=== PATIENT | male | born 1960 | race Two or more races ===

== ENCOUNTER 2020-03-12 15:52 | Inpatient (IN) | payer OTHER ==
[~2020-03-12] VITALS: Ht 175.3 cm; Wt 94.3 kg
[2020-03-12 16:30] VITALS: BP 138/96
[2020-03-12] MEDS ORDERED: DEXTROSE 50%-WATER 25 GM/50 ML SYRINGE IVP PRN (17:45)
[2020-03-12] MEDS ORDERED: MELATONIN 5 MG TABLET PO PRN (18:15)
[2020-03-12 18:20] LABS: GLUCOMETER DEV NAME(LOC) 2WR.2B; GLUCOSE,POINT OF CARE 95 MG/DL (70-110)
[2020-03-12 21:06] LABS: GLUCOMETER DEV NAME(LOC) 2WR.2B; GLUCOSE,POINT OF CARE 156 MG/DL (70-110)
[2020-03-12] MEDS ORDERED: SODIUM CHLORIDE 0.9% 1,000 ML ONE (21:41)
[2020-03-12] MEDS: CHLORHEXIDINE GLUCONATE 0.12% 15 ML UDCUP ORAL RINSE PO SCH (21:44)
[2020-03-12] MEDS: SIMVASTATIN 20 MG TABLET PO SCH (21:45)
[2020-03-12] MEDS: DOCUSATE SODIUM 250 MG CAPSULE PO SCH (21:45)
[2020-03-12] MEDS: SENNA 187 MG TABLET PO SCH (21:45)
[2020-03-12] MEDS: GABAPENTIN 300 MG CAPSULE PO SCH (21:45)
[2020-03-12] MEDS: BACITRACIN 28 GM OINTMENT TP SCH (21:45)
[2020-03-12] MEDS: ERYTHROMYCIN 0.5% 3.5 GM TUBE OPHTHALMIC OINTMENT OS SCH (21:45)
[2020-03-12] MEDS: PIPERACILLIN/TAZO 3.375 GM/D5W 50 ML IV SCH (21:46)
[2020-03-12] MEDS: ENOXAPARIN SODIUM 60 MG/0.6 ML PF SYRINGE SQ SCH (21:46)
[2020-03-12] MEDS: INSULIN GLARGINE,HUM.REC.ANLOG 100 UNITS/ML SQ SCH (22:00)
[2020-03-12] MEDS: INSULIN LISPRO 100 UNITS/ML SQ PRN (22:00)
[2020-03-12] MEDS: 0.9% SODIUM CHLORIDE 10 ML SYRINGE IVP SCH (23:21)
[2020-03-12 23:33] VITALS: BP 127/87
[2020-03-12] MEDS: OxyCODONE HCL 5 MG IR TABLET PO PRN (23:34)
[2020-03-13] MEDS: PIPERACILLIN/TAZO 3.375 GM/D5W 50 ML IV SCH ×3 (04:57→21:47)
[2020-03-13 05:48] LABS: GLUCOMETER DEV NAME(LOC) 2WR.2B; GLUCOSE,POINT OF CARE 144 MG/DL (70-110)
[2020-03-13 06:13] LABS: BASOPHILS % (AUTO) 0.5 % (0.0-2.0); EOSINOPHILS % (AUTO) 1.9 % (1.0-6.0); HEMATOCRIT 34.6 % (41-53); HEMOGLOBIN 11.8 g/dL (13.5-17.5); LYMPHOCYTES # (AUTO) 1.5 K/uL (1.0-4.8); LYMPHOCYTES % (AUTO) 13.7 % (22.0-44.0); MEAN CORPUSCULAR HEMOGLOBIN 31.3 pg (26.0-34.0); MEAN CORPUSCULAR HGB CONC 34.3 G/dL (31.0-37.0); MEAN CORPUSCULAR VOLUME 92 fL (80-100); MONOCYTES # (AUTO) 0.8 K/uL (0.1-1.0); NEUTROPHILS # (AUTO) 8.4 K/uL (1.8-7.7); NEUTROPHILS % (AUTO) 76.9 % (40.0-70.0); PLATELET COUNT (AUTO) 316 K/uL (150-450); RED BLOOD CELL COUNT(AUTO) 3.78 MIL/uL (4.50-5.90); RED CELL DISTRIBUTION WIDTH 14.2 % (11.5-14.5)
[2020-03-13 07:04] LABS: ALANINE AMINOTRANSFERASE 37 U/L (12-78); ALBUMIN 2.4 g/dL (3.4-5.0); ALKALINE PHOSPHATASE 185 U/L (46-116); ANION GAP 6 mmol/L (8-16); ASPARTATE AMINOTRANSFERASE 16 U/L (15-37); BILIRUBIN,TOTAL 0.3 mg/dL (0.1-1.0); CALCIUM, TOTAL 9.2 mg/dL (8.8-10.5); CARBON DIOXIDE 30 mmol/L (22-29); CHLORIDE 103 mmol/L (98-107); CREATININE 0.61 mg/dL (0.60-1.30); GLOMERULAR FILTR. RATE CALC > 60 mL/min (>60); GLUCOSE,RANDOM 126 mg/dL (70-110); POTASSIUM 4.2 mmol/L (3.5-5.1); SODIUM SERUM 139 mmol/L (136-145); TOTAL PROTEIN, SERUM 7.3 g/dL (6.4-8.2); UREA NITROGEN, BLOOD 14 mg/dL (7-18)
[2020-03-13] MEDS: CHLORHEXIDINE GLUCONATE 0.12% 15 ML UDCUP ORAL RINSE PO SCH ×3 (08:19→21:00)
[2020-03-13] MEDS: OxyCODONE HCL 5 MG IR TABLET PO PRN ×3 (08:20→23:01)
[2020-03-13] MEDS: MetFORMIN HCL 500 MG TABLET PO SCH ×2 (08:20→17:29)
[2020-03-13] MEDS: NICOTINE 7 MG/24 HOUR PATCH TD SCH (08:20)
[2020-03-13] MEDS: GABAPENTIN 300 MG CAPSULE PO SCH ×3 (08:21→20:14)
[2020-03-13] MEDS: BACITRACIN 28 GM OINTMENT TP SCH ×2 (08:21→20:13)
[2020-03-13] MEDS: AmLODIPine BESYLATE 10 MG TABLET PO SCH (08:22)
[2020-03-13] MEDS: DOCUSATE SODIUM 250 MG CAPSULE PO SCH ×2 (08:22→20:14)
[2020-03-13] MEDS: ERYTHROMYCIN 0.5% 3.5 GM TUBE OPHTHALMIC OINTMENT OS SCH ×5 (08:22→21:00)
[2020-03-13] MEDS: ENOXAPARIN SODIUM 60 MG/0.6 ML PF SYRINGE SQ SCH ×2 (08:22→20:14)
[2020-03-13] MEDS: 0.9% SODIUM CHLORIDE 10 ML SYRINGE IVP SCH ×3 (08:23→23:33)
[2020-03-13 08:26] VITALS: BP 107/79
[2020-03-13] MEDS: INSULIN LISPRO 100 UNITS/ML SQ PRN ×2 (09:38→20:13)
[2020-03-13 15:33] LABS: GLUCOMETER DEV NAME(LOC) 2WR.1C; GLUCOSE,POINT OF CARE 124 MG/DL (70-110)
[2020-03-13 16:00] VITALS: BP 128/85
[2020-03-13 17:46] LABS: GLUCOMETER DEV NAME(LOC) 2WR.1C; GLUCOSE,POINT OF CARE 118 MG/DL (70-110)
[2020-03-13 17:46] LABS: GLUCOMETER DEV NAME(LOC) 2WR.1C; GLUCOSE,POINT OF CARE 134 MG/DL (70-110)
[2020-03-13] MEDS: CHLORHEXIDINE GLUCONATE 4% 118 ML TOPICAL LIQUID TP SCH ×2 (18:00→21:47)
[2020-03-13] MEDS: INSULIN GLARGINE,HUM.REC.ANLOG 100 UNITS/ML SQ SCH (20:13)
[2020-03-13] MEDS: SENNA 187 MG TABLET PO SCH (20:14)
[2020-03-13] MEDS: SIMVASTATIN 20 MG TABLET PO SCH (20:14)
[2020-03-13] MEDS ORDERED: TraZODone HCL 50 MG TABLET PO SCH (21:00)
[2020-03-13 21:12] LABS: GLUCOMETER DEV NAME(LOC) 2WR.1C; GLUCOSE,POINT OF CARE 203 MG/DL (70-110)
[2020-03-14 00:01] VITALS: BP 121/81
[2020-03-14] MEDS: OxyCODONE HCL 5 MG IR TABLET PO PRN ×4 (03:31→23:56)
[2020-03-14] MEDS: PIPERACILLIN/TAZO 3.375 GM/D5W 50 ML IV SCH (05:38)
[2020-03-14 06:00] LABS: GLUCOMETER DEV NAME(LOC) 2WR.2B; GLUCOSE,POINT OF CARE 123 MG/DL (70-110)
[2020-03-14 08:00] VITALS: BP 127/76
[2020-03-14] MEDS: MetFORMIN HCL 500 MG TABLET PO SCH ×2 (08:03→15:59)
[2020-03-14] MEDS: MULTIVITAMINS WITH MINERALS, THERAPEUTIC TABLET PO SCH (08:04)
[2020-03-14] MEDS: DOCUSATE SODIUM 250 MG CAPSULE PO SCH ×2 (08:04→20:06)
[2020-03-14] MEDS: NICOTINE 7 MG/24 HOUR PATCH TD SCH (08:04)
[2020-03-14] MEDS: BACITRACIN 28 GM OINTMENT TP SCH ×2 (08:04→20:07)
[2020-03-14] MEDS: CHLORHEXIDINE GLUCONATE 0.12% 15 ML UDCUP ORAL RINSE PO SCH ×2 (08:05→20:06)
[2020-03-14] MEDS: AmLODIPine BESYLATE 10 MG TABLET PO SCH (08:05)
[2020-03-14] MEDS: GABAPENTIN 300 MG CAPSULE PO SCH ×3 (08:05→20:06)
[2020-03-14] MEDS: ENOXAPARIN SODIUM 60 MG/0.6 ML PF SYRINGE SQ SCH ×2 (08:06→20:06)
[2020-03-14] MEDS: 0.9% SODIUM CHLORIDE 10 ML SYRINGE IVP SCH ×3 (08:09→23:31)
[2020-03-14] MEDS: ERYTHROMYCIN 0.5% 3.5 GM TUBE OPHTHALMIC OINTMENT OS SCH ×4 (08:09→21:00)
[2020-03-14 09:26] VITALS: BP 127/76
[2020-03-14 13:11] LABS: GLUCOMETER DEV NAME(LOC) 2WR.2B; GLUCOSE,POINT OF CARE 115 MG/DL (70-110)
[2020-03-14 16:13] VITALS: BP 117/73
[2020-03-14 17:11] LABS: APPEARANCE,URINE CLEAR (CLEAR); BILIRUBIN,URINE NEGATIVE (NEGATIVE); GLUCOSE, URINE (UA) NEGATIVE (NEGATIVE); KETONES,URINE NEGATIVE (NEGATIVE); LEUKOCYTE ESTERASE ,URINE NEGATIVE (NEGATIVE); NITRATE,URINE NEGATIVE (NEGATIVE); OCCULT BLOOD,URINE NEGATIVE (NEGATIVE); PH,URINE 7.5 (5.0-8.0); PROTEIN,URINE TRACE (NEGATIVE)
[2020-03-14 17:51] LABS: BACTERIA,URINE None Seen /HPF (None Seen); RBC,URINE None Seen /HPF (0-2); WBC,URINE None Seen /HPF (0-5)
[2020-03-14] MEDS: CHLORHEXIDINE GLUCONATE 4% 118 ML TOPICAL LIQUID TP SCH (18:06)
[2020-03-14] MEDS: SENNA 187 MG TABLET PO SCH (20:06)
[2020-03-14] MEDS: TraZODone HCL 100 MG TABLET PO SCH (20:06)
[2020-03-14] MEDS: INSULIN GLARGINE,HUM.REC.ANLOG 100 UNITS/ML SQ SCH (20:17)
[2020-03-14] MEDS: INSULIN LISPRO 100 UNITS/ML SQ PRN (20:17)
[2020-03-14 20:20] LABS: GLUCOMETER DEV NAME(LOC) 2WR.2B; GLUCOSE,POINT OF CARE 111 MG/DL (70-110)
[2020-03-14] MEDS: SIMVASTATIN 20 MG TABLET PO SCH (20:28)
[2020-03-14 21:52] LABS: GLUCOMETER DEV NAME(LOC) 2WR.2B; GLUCOSE,POINT OF CARE 146 MG/DL (70-110)
[2020-03-14 23:56] VITALS: BP 125/69
[2020-03-15 07:45] VITALS: BP 132/72
[2020-03-15] MEDS: ENOXAPARIN SODIUM 60 MG/0.6 ML PF SYRINGE SQ SCH ×2 (08:17→19:55)
[2020-03-15] MEDS: NICOTINE 7 MG/24 HOUR PATCH TD SCH (08:17)
[2020-03-15] MEDS: BACITRACIN 28 GM OINTMENT TP SCH ×2 (08:17→19:55)
[2020-03-15] MEDS: AmLODIPine BESYLATE 10 MG TABLET PO SCH (08:17)
[2020-03-15] MEDS: MetFORMIN HCL 500 MG TABLET PO SCH ×2 (08:17→17:32)
[2020-03-15] MEDS: 0.9% SODIUM CHLORIDE 10 ML SYRINGE IVP SCH ×3 (08:18→22:53)
[2020-03-15] MEDS: MULTIVITAMINS WITH MINERALS, THERAPEUTIC TABLET PO SCH (08:18)
[2020-03-15] MEDS: CHLORHEXIDINE GLUCONATE 0.12% 15 ML UDCUP ORAL RINSE PO SCH ×2 (08:18→19:56)
[2020-03-15] MEDS: DOCUSATE SODIUM 250 MG CAPSULE PO SCH ×2 (08:18→19:56)
[2020-03-15] MEDS: GABAPENTIN 300 MG CAPSULE PO SCH ×3 (08:18→19:56)
[2020-03-15] MEDS: ERYTHROMYCIN 0.5% 3.5 GM TUBE OPHTHALMIC OINTMENT OS SCH ×4 (08:20→19:56)
[2020-03-15] MEDS: INSULIN LISPRO 100 UNITS/ML SQ PRN ×2 (08:20→20:09)
[2020-03-15] MEDS: OxyCODONE HCL 5 MG IR TABLET PO PRN ×3 (12:13→23:00)
[2020-03-15 12:42] LABS: GLUCOMETER DEV NAME(LOC) 2WR.2B; GLUCOSE,POINT OF CARE 134 MG/DL (70-110)
[2020-03-15 15:59] LABS: GLUCOMETER DEV NAME(LOC) 2WR.1C; GLUCOSE,POINT OF CARE 154 MG/DL (70-110)
[2020-03-15 16:01] VITALS: BP 138/85
[2020-03-15 16:31] LABS: GLUCOMETER DEV NAME(LOC) 2WR.2B; GLUCOSE,POINT OF CARE 102 MG/DL (70-110)
[2020-03-15] MEDS: CHLORHEXIDINE GLUCONATE 4% 118 ML TOPICAL LIQUID TP SCH (17:32)
[2020-03-15] MEDS: TraZODone HCL 100 MG TABLET PO SCH (19:56)
[2020-03-15] MEDS: SIMVASTATIN 20 MG TABLET PO SCH (19:56)
[2020-03-15] MEDS: TAMSULOSIN HCL 0.4 MG CAPSULE PO SCH (19:56)
[2020-03-15] MEDS: SENNA 187 MG TABLET PO SCH (19:56)
[2020-03-15] MEDS: INSULIN GLARGINE,HUM.REC.ANLOG 100 UNITS/ML SQ SCH (20:05)
[2020-03-15 22:07] LABS: GLUCOMETER DEV NAME(LOC) 2WR.1C; GLUCOSE,POINT OF CARE 146 MG/DL (70-110)
[2020-03-15 23:00] VITALS: BP 116/82
[2020-03-16 05:55] LABS: GLUCOMETER DEV NAME(LOC) 2WR.1C; GLUCOSE,POINT OF CARE 131 MG/DL (70-110)
[2020-03-16] MEDS: ENOXAPARIN SODIUM 60 MG/0.6 ML PF SYRINGE SQ SCH ×2 (08:24→20:13)
[2020-03-16] MEDS: DOCUSATE SODIUM 250 MG CAPSULE PO SCH ×2 (08:24→20:14)
[2020-03-16] MEDS: AmLODIPine BESYLATE 10 MG TABLET PO SCH (08:24)
[2020-03-16] MEDS: NICOTINE 7 MG/24 HOUR PATCH TD SCH (08:24)
[2020-03-16] MEDS: CHLORHEXIDINE GLUCONATE 0.12% 15 ML UDCUP ORAL RINSE PO SCH ×2 (08:24→20:13)
[2020-03-16] MEDS: MULTIVITAMINS WITH MINERALS, THERAPEUTIC TABLET PO SCH (08:24)
[2020-03-16 08:25] VITALS: BP 120/70
[2020-03-16] MEDS: MetFORMIN HCL 500 MG TABLET PO SCH ×2 (08:25→17:43)
[2020-03-16] MEDS: GABAPENTIN 300 MG CAPSULE PO SCH ×3 (08:25→20:14)
[2020-03-16] MEDS: 0.9% SODIUM CHLORIDE 10 ML SYRINGE IVP SCH ×3 (08:25→23:40)
[2020-03-16] MEDS: BACITRACIN 28 GM OINTMENT TP SCH ×2 (08:25→20:13)
[2020-03-16] MEDS: OxyCODONE HCL 5 MG IR TABLET PO PRN ×3 (08:25→20:51)
[2020-03-16] MEDS: ERYTHROMYCIN 0.5% 3.5 GM TUBE OPHTHALMIC OINTMENT OS SCH ×4 (08:26→20:20)
[2020-03-16 14:52] LABS: GLUCOMETER DEV NAME(LOC) 2WR.1C; GLUCOSE,POINT OF CARE 128 MG/DL (70-110)
[2020-03-16 16:27] VITALS: BP 119/74
[2020-03-16 18:56] LABS: GLUCOMETER DEV NAME(LOC) 2WR.1C; GLUCOSE,POINT OF CARE 138 MG/DL (70-110)
[2020-03-16] MEDS: CHLORHEXIDINE GLUCONATE 4% 118 ML TOPICAL LIQUID TP SCH (20:13)
[2020-03-16] MEDS: SIMVASTATIN 20 MG TABLET PO SCH (20:14)
[2020-03-16] MEDS: TraZODone HCL 100 MG TABLET PO SCH (20:14)
[2020-03-16] MEDS: TAMSULOSIN HCL 0.4 MG CAPSULE PO SCH (20:14)
[2020-03-16] MEDS: SENNA 187 MG TABLET PO SCH (20:15)
[2020-03-16] MEDS: INSULIN GLARGINE,HUM.REC.ANLOG 100 UNITS/ML SQ SCH (20:19)
[2020-03-16 21:44] LABS: GLUCOMETER DEV NAME(LOC) 2WR.1C; GLUCOSE,POINT OF CARE 126 MG/DL (70-110)
[2020-03-16 23:44] VITALS: BP 121/77
[2020-03-17] MEDS: OxyCODONE HCL 5 MG IR TABLET PO PRN ×4 (01:08→23:40)
[2020-03-17 06:02] LABS: GLUCOMETER DEV NAME(LOC) 2WR.2B; GLUCOSE,POINT OF CARE 157 MG/DL (70-110)
[2020-03-17 07:34] LABS: EOSINOPHILS % (AUTO) 3.6 % (1.0-6.0); HEMATOCRIT 36.2 % (41-53); LYMPHOCYTES # (AUTO) 1.5 K/uL (1.0-4.8); LYMPHOCYTES % (AUTO) 18.6 % (22.0-44.0); MEAN CORPUSCULAR HEMOGLOBIN 30.4 pg (26.0-34.0); MEAN CORPUSCULAR HGB CONC 33.2 G/dL (31.0-37.0); MEAN CORPUSCULAR VOLUME 92 fL (80-100); MONOCYTES # (AUTO) 0.7 K/uL (0.1-1.0); MONOCYTES % (AUTO) 8.4 % (2.0-9.0); NEUTROPHILS # (AUTO) 5.4 K/uL (1.8-7.7); NEUTROPHILS % (AUTO) 68.4 % (40.0-70.0); PLATELET COUNT (AUTO) 347 K/uL (150-450); RED BLOOD CELL COUNT(AUTO) 3.95 MIL/uL (4.50-5.90); RED CELL DISTRIBUTION WIDTH 14.7 % (11.5-14.5)
[2020-03-17 08:00] LABS: ANION GAP 10 mmol/L (8-16); CALCIUM, TOTAL 9.6 mg/dL (8.8-10.5); CARBON DIOXIDE 26 mmol/L (22-29); CHLORIDE 102 mmol/L (98-107); CREATININE 0.56 mg/dL (0.60-1.30); GLOMERULAR FILTR. RATE CALC > 60 mL/min (>60); GLUCOSE,RANDOM 162 mg/dL (70-110); POTASSIUM 3.9 mmol/L (3.5-5.1); SODIUM SERUM 138 mmol/L (136-145); UREA NITROGEN, BLOOD 14 mg/dL (7-18)
[2020-03-17] MEDS: INSULIN LISPRO 100 UNITS/ML SQ PRN (08:22)
[2020-03-17] MEDS: AmLODIPine BESYLATE 10 MG TABLET PO SCH (08:26)
[2020-03-17] MEDS: CHLORHEXIDINE GLUCONATE 0.12% 15 ML UDCUP ORAL RINSE PO SCH ×2 (08:26→20:01)
[2020-03-17] MEDS: ENOXAPARIN SODIUM 60 MG/0.6 ML PF SYRINGE SQ SCH ×2 (08:26→20:01)
[2020-03-17] MEDS: BACITRACIN 28 GM OINTMENT TP SCH ×2 (08:27→20:01)
[2020-03-17] MEDS: GABAPENTIN 300 MG CAPSULE PO SCH ×3 (08:27→20:01)
[2020-03-17] MEDS: NICOTINE 7 MG/24 HOUR PATCH TD SCH (08:27)
[2020-03-17] MEDS: MetFORMIN HCL 500 MG TABLET PO SCH ×2 (08:27→17:22)
[2020-03-17] MEDS: DOCUSATE SODIUM 250 MG CAPSULE PO SCH ×2 (08:27→20:01)
[2020-03-17] MEDS: MULTIVITAMINS WITH MINERALS, THERAPEUTIC TABLET PO SCH (08:28)
[2020-03-17] MEDS: ERYTHROMYCIN 0.5% 3.5 GM TUBE OPHTHALMIC OINTMENT OS SCH ×3 (08:28→20:01)
[2020-03-17] MEDS: 0.9% SODIUM CHLORIDE 10 ML SYRINGE IVP SCH ×3 (08:28→23:40)
[2020-03-17 11:22] VITALS: BP 123/72
[2020-03-17 12:48] LABS: GLUCOMETER DEV NAME(LOC) 2WR.2B; GLUCOSE,POINT OF CARE 103 MG/DL (70-110)
[2020-03-17 16:05] VITALS: BP 144/84
[2020-03-17] MEDS: CHLORHEXIDINE GLUCONATE 4% 118 ML TOPICAL LIQUID TP SCH (18:05)
[2020-03-17] MEDS: TraZODone HCL 100 MG TABLET PO SCH (20:01)
[2020-03-17] MEDS: TAMSULOSIN HCL 0.4 MG CAPSULE PO SCH (20:01)
[2020-03-17] MEDS: SENNA 187 MG TABLET PO SCH (20:01)
[2020-03-17] MEDS: SIMVASTATIN 20 MG TABLET PO SCH (20:01)
[2020-03-17] MEDS: INSULIN GLARGINE,HUM.REC.ANLOG 100 UNITS/ML SQ SCH (20:09)
[2020-03-17 20:55] LABS: GLUCOMETER DEV NAME(LOC) 2WR.2B; GLUCOSE,POINT OF CARE 122 MG/DL (70-110)
[2020-03-17 20:55] LABS: GLUCOMETER DEV NAME(LOC) 2WR.2B; GLUCOSE,POINT OF CARE 111 MG/DL (70-110)
[2020-03-17 23:40] VITALS: BP 109/81
[2020-03-18 06:19] LABS: GLUCOMETER DEV NAME(LOC) 2WR.1C; GLUCOSE,POINT OF CARE 174 MG/DL (70-110)
[2020-03-18] MEDS: CHLORHEXIDINE GLUCONATE 0.12% 15 ML UDCUP ORAL RINSE PO SCH ×2 (08:17→20:15)
[2020-03-18] MEDS: DOCUSATE SODIUM 250 MG CAPSULE PO SCH ×2 (08:17→20:17)
[2020-03-18] MEDS: MULTIVITAMINS WITH MINERALS, THERAPEUTIC TABLET PO SCH (08:17)
[2020-03-18] MEDS: AmLODIPine BESYLATE 10 MG TABLET PO SCH (08:17)
[2020-03-18] MEDS: MetFORMIN HCL 500 MG TABLET PO SCH ×2 (08:17→17:39)
[2020-03-18] MEDS: GABAPENTIN 300 MG CAPSULE PO SCH ×3 (08:17→20:16)
[2020-03-18] MEDS: BACITRACIN 28 GM OINTMENT TP SCH ×2 (08:18→20:16)
[2020-03-18] MEDS: ENOXAPARIN SODIUM 60 MG/0.6 ML PF SYRINGE SQ SCH ×2 (08:18→20:15)
[2020-03-18] MEDS: NICOTINE 7 MG/24 HOUR PATCH TD SCH (08:18)
[2020-03-18] MEDS: INSULIN LISPRO 100 UNITS/ML SQ PRN (08:18)
[2020-03-18] MEDS: 0.9% SODIUM CHLORIDE 10 ML SYRINGE IVP SCH ×2 (08:21→15:48)
[2020-03-18] MEDS: ERYTHROMYCIN 0.5% 3.5 GM TUBE OPHTHALMIC OINTMENT OS SCH ×4 (08:26→20:22)
[2020-03-18 09:21] VITALS: BP 121/73
[2020-03-18 13:38] LABS: GLUCOMETER DEV NAME(LOC) 2WR.2B; GLUCOSE,POINT OF CARE 104 MG/DL (70-110)
[2020-03-18 15:47] VITALS: BP 136/82
[2020-03-18] MEDS: OxyCODONE HCL 5 MG IR TABLET PO PRN ×2 (15:47→21:27)
[2020-03-18 18:08] LABS: GLUCOMETER DEV NAME(LOC) 2WR.2B; GLUCOSE,POINT OF CARE 106 MG/DL (70-110)
[2020-03-18] MEDS: CHLORHEXIDINE GLUCONATE 4% 118 ML TOPICAL LIQUID TP SCH (20:15)
[2020-03-18] MEDS: TraZODone HCL 100 MG TABLET PO SCH (20:16)
[2020-03-18] MEDS: TAMSULOSIN HCL 0.4 MG CAPSULE PO SCH (20:16)
[2020-03-18] MEDS: SIMVASTATIN 20 MG TABLET PO SCH (20:17)
[2020-03-18] MEDS: SENNA 187 MG TABLET PO SCH (20:17)
[2020-03-18] MEDS: INSULIN GLARGINE,HUM.REC.ANLOG 100 UNITS/ML SQ SCH (20:22)
[2020-03-18 22:52] LABS: GLUCOMETER DEV NAME(LOC) 2WR.2B; GLUCOSE,POINT OF CARE 112 MG/DL (70-110)
[2020-03-19] VITALS: BP 110/78
[2020-03-19] MEDS: 0.9% SODIUM CHLORIDE 10 ML SYRINGE IVP SCH ×4 (00:05→23:52)
[2020-03-19 05:59] LABS: GLUCOMETER DEV NAME(LOC) 2WR.2B; GLUCOSE,POINT OF CARE 135 MG/DL (70-110)
[2020-03-19 08:17] VITALS: BP 112/74
[2020-03-19] MEDS: ERYTHROMYCIN 0.5% 3.5 GM TUBE OPHTHALMIC OINTMENT OS SCH ×4 (09:00→20:19)
[2020-03-19] MEDS: NICOTINE 7 MG/24 HOUR PATCH TD SCH (10:46)
[2020-03-19] MEDS: AmLODIPine BESYLATE 10 MG TABLET PO SCH (10:46)
[2020-03-19] MEDS: DOCUSATE SODIUM 250 MG CAPSULE PO SCH ×2 (10:46→20:18)
[2020-03-19] MEDS: CHLORHEXIDINE GLUCONATE 0.12% 15 ML UDCUP ORAL RINSE PO SCH ×2 (10:46→20:19)
[2020-03-19] MEDS: MetFORMIN HCL 500 MG TABLET PO SCH ×2 (10:46→16:51)
[2020-03-19] MEDS: GABAPENTIN 300 MG CAPSULE PO SCH ×3 (10:46→20:19)
[2020-03-19] MEDS: MULTIVITAMINS WITH MINERALS, THERAPEUTIC TABLET PO SCH (10:46)
[2020-03-19] MEDS: ENOXAPARIN SODIUM 60 MG/0.6 ML PF SYRINGE SQ SCH ×2 (10:47→20:18)
[2020-03-19] MEDS: BACITRACIN 28 GM OINTMENT TP SCH ×2 (10:47→20:19)
[2020-03-19] MEDS: OxyCODONE HCL 5 MG IR TABLET PO PRN ×2 (10:49→18:21)
[2020-03-19] MEDS: INSULIN LISPRO 100 UNITS/ML SQ PRN (13:03)
[2020-03-19 14:00] LABS: GLUCOMETER DEV NAME(LOC) 2WR.1C; GLUCOSE,POINT OF CARE 242 MG/DL (70-110)
[2020-03-19 17:09] VITALS: BP 143/91
[2020-03-19] MEDS: CHLORHEXIDINE GLUCONATE 4% 118 ML TOPICAL LIQUID TP SCH (18:21)
[2020-03-19 18:34] LABS: GLUCOMETER DEV NAME(LOC) 2WR.2B; GLUCOSE,POINT OF CARE 86 MG/DL (70-110)
[2020-03-19] MEDS: SENNA 187 MG TABLET PO SCH (20:18)
[2020-03-19] MEDS: TraZODone HCL 100 MG TABLET PO SCH (20:18)
[2020-03-19] MEDS: SIMVASTATIN 20 MG TABLET PO SCH (20:18)
[2020-03-19] MEDS: TAMSULOSIN HCL 0.4 MG CAPSULE PO SCH (20:18)
[2020-03-19] MEDS: INSULIN GLARGINE,HUM.REC.ANLOG 100 UNITS/ML SQ SCH (20:23)
[2020-03-19 20:38] VITALS: BP 138/89
[2020-03-19 21:09] LABS: GLUCOMETER DEV NAME(LOC) 2WR.2B; GLUCOSE,POINT OF CARE 131 MG/DL (70-110)
[2020-03-20 01:42] VITALS: BP 121/77
[2020-03-20] MEDS: OxyCODONE HCL 5 MG IR TABLET PO PRN ×4 (01:42→20:57)
[2020-03-20 06:07] LABS: GLUCOMETER DEV NAME(LOC) 2WR.2B; GLUCOSE,POINT OF CARE 85 MG/DL (70-110)
[2020-03-20 08:05] VITALS: BP 148/68
[2020-03-20] MEDS: AmLODIPine BESYLATE 10 MG TABLET PO SCH (08:23)
[2020-03-20] MEDS: MetFORMIN HCL 500 MG TABLET PO SCH ×2 (08:23→16:48)
[2020-03-20] MEDS: 0.9% SODIUM CHLORIDE 10 ML SYRINGE IVP SCH ×2 (08:24→16:18)
[2020-03-20] MEDS: DOCUSATE SODIUM 250 MG CAPSULE PO SCH ×2 (08:24→20:56)
[2020-03-20] MEDS: CHLORHEXIDINE GLUCONATE 0.12% 15 ML UDCUP ORAL RINSE PO SCH ×2 (08:24→20:57)
[2020-03-20] MEDS: GABAPENTIN 300 MG CAPSULE PO SCH ×3 (08:24→20:56)
[2020-03-20] MEDS: MULTIVITAMINS WITH MINERALS, THERAPEUTIC TABLET PO SCH (08:24)
[2020-03-20] MEDS: ENOXAPARIN SODIUM 60 MG/0.6 ML PF SYRINGE SQ SCH ×2 (08:24→20:56)
[2020-03-20] MEDS: BACITRACIN 28 GM OINTMENT TP SCH ×2 (08:24→20:56)
[2020-03-20] MEDS: NICOTINE 7 MG/24 HOUR PATCH TD SCH (08:25)
[2020-03-20] MEDS: ERYTHROMYCIN 0.5% 3.5 GM TUBE OPHTHALMIC OINTMENT OS SCH ×4 (08:34→21:00)
[2020-03-20 14:19] LABS: GLUCOMETER DEV NAME(LOC) 2WR.1C; GLUCOSE,POINT OF CARE 126 MG/DL (70-110)
[2020-03-20 16:00] VITALS: BP 135/83
[2020-03-20] MEDS: CHLORHEXIDINE GLUCONATE 4% 118 ML TOPICAL LIQUID TP SCH (18:00)
[2020-03-20] MEDS: TraZODone HCL 100 MG TABLET PO SCH (20:56)
[2020-03-20] MEDS: TAMSULOSIN HCL 0.4 MG CAPSULE PO SCH (20:56)
[2020-03-20] MEDS: SIMVASTATIN 20 MG TABLET PO SCH (20:56)
[2020-03-20] MEDS: SENNA 187 MG TABLET PO SCH (20:56)
[2020-03-20] MEDS: INSULIN GLARGINE,HUM.REC.ANLOG 100 UNITS/ML SQ SCH (20:59)
[2020-03-21] MEDS: 0.9% SODIUM CHLORIDE 10 ML SYRINGE IVP SCH ×4 (00:10→23:56)
[2020-03-21 00:12] VITALS: BP 122/82
[2020-03-21 05:28] LABS: GLUCOMETER DEV NAME(LOC) 2WR.1C; GLUCOSE,POINT OF CARE 132 MG/DL (70-110)
[2020-03-21 05:30] LABS: GLUCOMETER DEV NAME(LOC) 2WR.1C; GLUCOSE,POINT OF CARE 139 MG/DL (70-110)
[2020-03-21 06:00] LABS: GLUCOMETER DEV NAME(LOC) 2WR.1C; GLUCOSE,POINT OF CARE 104 MG/DL (70-110)
[2020-03-21 09:40] VITALS: BP 117/77
[2020-03-21] MEDS: MetFORMIN HCL 500 MG TABLET PO SCH ×2 (09:43→17:26)
[2020-03-21] MEDS: AmLODIPine BESYLATE 10 MG TABLET PO SCH (09:43)
[2020-03-21] MEDS: NICOTINE 7 MG/24 HOUR PATCH TD SCH (09:43)
[2020-03-21] MEDS: CHLORHEXIDINE GLUCONATE 0.12% 15 ML UDCUP ORAL RINSE PO SCH ×2 (09:43→20:14)
[2020-03-21] MEDS: BACITRACIN 28 GM OINTMENT TP SCH ×2 (09:43→20:13)
[2020-03-21] MEDS: ERYTHROMYCIN 0.5% 3.5 GM TUBE OPHTHALMIC OINTMENT OS SCH ×3 (09:43→20:12)
[2020-03-21] MEDS: GABAPENTIN 300 MG CAPSULE PO SCH ×3 (09:44→20:12)
[2020-03-21] MEDS: ENOXAPARIN SODIUM 60 MG/0.6 ML PF SYRINGE SQ SCH ×2 (09:44→20:13)
[2020-03-21] MEDS: DOCUSATE SODIUM 250 MG CAPSULE PO SCH ×2 (09:44→20:12)
[2020-03-21] MEDS: MULTIVITAMINS WITH MINERALS, THERAPEUTIC TABLET PO SCH (09:45)
[2020-03-21] MEDS: OxyCODONE HCL 5 MG IR TABLET PO PRN ×3 (09:52→23:56)
[2020-03-21 15:39] LABS: GLUCOMETER DEV NAME(LOC) 2WR.2B; GLUCOSE,POINT OF CARE 122 MG/DL (70-110)
[2020-03-21 15:52] VITALS: BP 131/77
[2020-03-21] MEDS: SENNA 187 MG TABLET PO SCH (20:12)
[2020-03-21] MEDS: CHLORHEXIDINE GLUCONATE 4% 118 ML TOPICAL LIQUID TP SCH (20:12)
[2020-03-21] MEDS: TAMSULOSIN HCL 0.4 MG CAPSULE PO SCH (20:13)
[2020-03-21] MEDS: SIMVASTATIN 20 MG TABLET PO SCH (20:14)
[2020-03-21 20:19] LABS: GLUCOMETER DEV NAME(LOC) 2WR.2B; GLUCOSE,POINT OF CARE 108 MG/DL (70-110)
[2020-03-21] MEDS: TraZODone HCL 100 MG TABLET PO SCH (20:39)
[2020-03-21] MEDS: INSULIN GLARGINE,HUM.REC.ANLOG 100 UNITS/ML SQ SCH (21:36)
[2020-03-21 23:39] LABS: GLUCOMETER DEV NAME(LOC) 2WR.2B; GLUCOSE,POINT OF CARE 105 MG/DL (70-110)
[2020-03-21 23:56] VITALS: BP 109/70
[2020-03-22 00:05] VITALS: BP 109/70
[2020-03-22] MEDS: OxyCODONE HCL 5 MG IR TABLET PO PRN (05:45)
[2020-03-22 05:55] LABS: GLUCOMETER DEV NAME(LOC) 2WR.2B; GLUCOSE,POINT OF CARE 132 MG/DL (70-110)
[2020-03-22] MEDS: MetFORMIN HCL 500 MG TABLET PO SCH ×2 (08:42→17:07)
[2020-03-22] MEDS: DOCUSATE SODIUM 250 MG CAPSULE PO SCH ×2 (08:43→20:27)
[2020-03-22] MEDS: BACITRACIN 28 GM OINTMENT TP SCH (08:43)
[2020-03-22] MEDS: ENOXAPARIN SODIUM 60 MG/0.6 ML PF SYRINGE SQ SCH ×2 (08:43→20:27)
[2020-03-22] MEDS: CHLORHEXIDINE GLUCONATE 0.12% 15 ML UDCUP ORAL RINSE PO SCH ×2 (08:43→20:27)
[2020-03-22] MEDS: AmLODIPine BESYLATE 10 MG TABLET PO SCH (08:43)
[2020-03-22] MEDS: GABAPENTIN 300 MG CAPSULE PO SCH ×3 (08:43→20:27)
[2020-03-22] MEDS: NICOTINE 7 MG/24 HOUR PATCH TD SCH (08:43)
[2020-03-22] MEDS: MULTIVITAMINS WITH MINERALS, THERAPEUTIC TABLET PO SCH (08:43)
[2020-03-22] MEDS: 0.9% SODIUM CHLORIDE 10 ML SYRINGE IVP SCH ×2 (08:44→16:11)
[2020-03-22] MEDS: ERYTHROMYCIN 0.5% 3.5 GM TUBE OPHTHALMIC OINTMENT OS SCH ×3 (08:44→16:00)
[2020-03-22 08:45] VITALS: BP 134/84
[2020-03-22] MEDS: ACETAMINOPHEN 325 MG TABLET PO PRN ×2 (08:46→20:27)
[2020-03-22] MEDS: INSULIN LISPRO 100 UNITS/ML SQ PRN (13:38)
[2020-03-22 16:00] VITALS: BP 124/74
[2020-03-22] MEDS: CHLORHEXIDINE GLUCONATE 4% 118 ML TOPICAL LIQUID TP SCH (17:08)
[2020-03-22 18:02] LABS: GLUCOMETER DEV NAME(LOC) 2WR.2B; GLUCOSE,POINT OF CARE 112 MG/DL (70-110)
[2020-03-22] MEDS: SENNA 187 MG TABLET PO SCH (20:27)
[2020-03-22] MEDS: TAMSULOSIN HCL 0.4 MG CAPSULE PO SCH (20:27)
[2020-03-22] MEDS: SIMVASTATIN 20 MG TABLET PO SCH (20:27)
[2020-03-22] MEDS: INSULIN GLARGINE,HUM.REC.ANLOG 100 UNITS/ML SQ SCH (20:37)
[2020-03-22] MEDS: TraZODone HCL 100 MG TABLET PO SCH (20:48)
[2020-03-22 22:07] LABS: GLUCOMETER DEV NAME(LOC) 2WR.2B; GLUCOSE,POINT OF CARE 114 MG/DL (70-110)
[2020-03-23 00:06] VITALS: BP 129/79
[2020-03-23] MEDS: ACETAMINOPHEN 325 MG TABLET PO PRN (03:15)
[2020-03-23 05:46] LABS: GLUCOMETER DEV NAME(LOC) 2WR.1C; GLUCOSE,POINT OF CARE 159 MG/DL (70-110)
[2020-03-23 05:54] LABS: GLUCOMETER DEV NAME(LOC) 2WR.1C; GLUCOSE,POINT OF CARE 131 MG/DL (70-110)
[2020-03-23] MEDS: ENOXAPARIN SODIUM 60 MG/0.6 ML PF SYRINGE SQ SCH ×2 (07:45→20:12)
[2020-03-23] MEDS: DOCUSATE SODIUM 250 MG CAPSULE PO SCH ×2 (07:45→20:12)
[2020-03-23] MEDS: NICOTINE 7 MG/24 HOUR PATCH TD SCH (07:45)
[2020-03-23] MEDS: AmLODIPine BESYLATE 10 MG TABLET PO SCH (07:45)
[2020-03-23] MEDS: CHLORHEXIDINE GLUCONATE 0.12% 15 ML UDCUP ORAL RINSE PO SCH ×2 (07:45→20:12)
[2020-03-23] MEDS: MULTIVITAMINS WITH MINERALS, THERAPEUTIC TABLET PO SCH (07:45)
[2020-03-23] MEDS: MetFORMIN HCL 500 MG TABLET PO SCH ×2 (07:45→17:19)
[2020-03-23] MEDS: GABAPENTIN 300 MG CAPSULE PO SCH ×3 (07:45→20:13)
[2020-03-23 08:52] VITALS: BP 105/64
[2020-03-23 15:18] VITALS: BP 146/79
[2020-03-23] MEDS: CHLORHEXIDINE GLUCONATE 4% 118 ML TOPICAL LIQUID TP SCH (18:00)
[2020-03-23 18:51] LABS: GLUCOMETER DEV NAME(LOC) 2WR.2B; GLUCOSE,POINT OF CARE 96 MG/DL (70-110)
[2020-03-23] MEDS: TraZODone HCL 100 MG TABLET PO SCH (20:13)
[2020-03-23] MEDS: TAMSULOSIN HCL 0.4 MG CAPSULE PO SCH (20:13)
[2020-03-23] MEDS: SIMVASTATIN 20 MG TABLET PO SCH (20:13)
[2020-03-23] MEDS: SENNA 187 MG TABLET PO SCH (20:13)
[2020-03-23] MEDS: INSULIN GLARGINE,HUM.REC.ANLOG 100 UNITS/ML SQ SCH (20:35)
[2020-03-23 21:22] LABS: GLUCOMETER DEV NAME(LOC) 2WR.2B; GLUCOSE,POINT OF CARE 104 MG/DL (70-110)
[2020-03-24 01:00] VITALS: BP 118/76
[2020-03-24 01:57] LABS: GLUCOMETER DEV NAME(LOC) 2WR.1C; GLUCOSE,POINT OF CARE 96 MG/DL (70-110)
[2020-03-24 06:11] LABS: GLUCOMETER DEV NAME(LOC) 2WR.2B; GLUCOSE,POINT OF CARE 139 MG/DL (70-110)
[2020-03-24] MEDS: DOCUSATE SODIUM 250 MG CAPSULE PO SCH ×2 (07:58→20:48)
[2020-03-24] MEDS: AmLODIPine BESYLATE 10 MG TABLET PO SCH (07:58)
[2020-03-24] MEDS: NICOTINE 7 MG/24 HOUR PATCH TD SCH (07:58)
[2020-03-24] MEDS: MULTIVITAMINS WITH MINERALS, THERAPEUTIC TABLET PO SCH (07:58)
[2020-03-24] MEDS: GABAPENTIN 300 MG CAPSULE PO SCH ×3 (07:58→20:47)
[2020-03-24] MEDS: MetFORMIN HCL 500 MG TABLET PO SCH ×2 (07:58→17:21)
[2020-03-24] MEDS: CHLORHEXIDINE GLUCONATE 0.12% 15 ML UDCUP ORAL RINSE PO SCH ×2 (07:59→20:49)
[2020-03-24] MEDS: ENOXAPARIN SODIUM 60 MG/0.6 ML PF SYRINGE SQ SCH ×2 (07:59→20:47)
[2020-03-24 08:05] VITALS: BP 110/79
[2020-03-24 12:39] LABS: GLUCOMETER DEV NAME(LOC) 2WR.1C; GLUCOSE,POINT OF CARE 85 MG/DL (70-110)
[2020-03-24] MEDS: ACETAMINOPHEN 325 MG TABLET PO PRN (15:23)
[2020-03-24 16:09] VITALS: BP 130/87
[2020-03-24] MEDS: SENNA 187 MG TABLET PO SCH (20:47)
[2020-03-24] MEDS: TAMSULOSIN HCL 0.4 MG CAPSULE PO SCH (20:47)
[2020-03-24] MEDS: SIMVASTATIN 20 MG TABLET PO SCH (20:48)
[2020-03-24] MEDS: TraZODone HCL 100 MG TABLET PO SCH (20:48)
[2020-03-24] MEDS: INSULIN GLARGINE,HUM.REC.ANLOG 100 UNITS/ML SQ SCH (21:03)
[2020-03-25 01:00] VITALS: BP 105/69
[2020-03-25 05:08] LABS: GLUCOMETER DEV NAME(LOC) 2WR.1C; GLUCOSE,POINT OF CARE 120 MG/DL (70-110)
[2020-03-25 05:08] LABS: GLUCOMETER DEV NAME(LOC) 2WR.1C; GLUCOSE,POINT OF CARE 101 MG/DL (70-110)
[2020-03-25 07:10] VITALS: BP 121/60
[2020-03-25] MEDS: MetFORMIN HCL 500 MG TABLET PO SCH ×2 (08:20→16:21)
[2020-03-25] MEDS: DOCUSATE SODIUM 250 MG CAPSULE PO SCH ×2 (08:20→20:02)
[2020-03-25] MEDS: MULTIVITAMINS WITH MINERALS, THERAPEUTIC TABLET PO SCH (08:21)
[2020-03-25] MEDS: AmLODIPine BESYLATE 10 MG TABLET PO SCH (08:21)
[2020-03-25] MEDS: GABAPENTIN 300 MG CAPSULE PO SCH ×3 (08:21→20:02)
[2020-03-25] MEDS: ENOXAPARIN SODIUM 60 MG/0.6 ML PF SYRINGE SQ SCH ×2 (08:21→20:02)
[2020-03-25] MEDS: CHLORHEXIDINE GLUCONATE 0.12% 15 ML UDCUP ORAL RINSE PO SCH ×2 (08:21→20:02)
[2020-03-25] MEDS: NICOTINE 7 MG/24 HOUR PATCH TD SCH (08:22)
[2020-03-25] MEDS: ACETAMINOPHEN 325 MG TABLET PO PRN ×2 (08:24→20:03)
[2020-03-25 12:27] VITALS: BP 125/80
[2020-03-25] MEDS: CARVEDILOL 3.125 MG TABLET PO SCH ×2 (12:29→20:02)
[2020-03-25 12:54] LABS: GLUCOMETER DEV NAME(LOC) 2WR.2B; GLUCOSE,POINT OF CARE 95 MG/DL (70-110)
[2020-03-25 15:30] VITALS: BP 119/88
[2020-03-25 17:43] LABS: GLUCOMETER DEV NAME(LOC) 2WR.1C; GLUCOSE,POINT OF CARE 139 MG/DL (70-110)
[2020-03-25 17:47] LABS: GLUCOMETER DEV NAME(LOC) 2WR.1C; GLUCOSE,POINT OF CARE 98 MG/DL (70-110)
[2020-03-25] MEDS: TAMSULOSIN HCL 0.4 MG CAPSULE PO SCH (20:01)
[2020-03-25] MEDS: SIMVASTATIN 20 MG TABLET PO SCH (20:02)
[2020-03-25] MEDS: TraZODone HCL 100 MG TABLET PO SCH (20:02)
[2020-03-25] MEDS: SENNA 187 MG TABLET PO SCH (20:03)
[2020-03-25] MEDS: INSULIN GLARGINE,HUM.REC.ANLOG 100 UNITS/ML SQ SCH (20:12)
[2020-03-25 21:14] LABS: GLUCOMETER DEV NAME(LOC) 2WR.2B; GLUCOSE,POINT OF CARE 103 MG/DL (70-110)
[2020-03-26] VITALS: BP 109/84
[2020-03-26 07:00] VITALS: BP 123/75
[2020-03-26 08:00] VITALS: BP 123/75
[2020-03-26] MEDS: MULTIVITAMINS WITH MINERALS, THERAPEUTIC TABLET PO SCH (08:14)
[2020-03-26] MEDS: GABAPENTIN 300 MG CAPSULE PO SCH ×3 (08:14→20:35)
[2020-03-26] MEDS: MetFORMIN HCL 500 MG TABLET PO SCH ×2 (08:14→17:45)
[2020-03-26] MEDS: CARVEDILOL 3.125 MG TABLET PO SCH (08:15)
[2020-03-26] MEDS: CHLORHEXIDINE GLUCONATE 0.12% 15 ML UDCUP ORAL RINSE PO SCH (08:15)
[2020-03-26] MEDS: AmLODIPine BESYLATE 10 MG TABLET PO SCH (08:15)
[2020-03-26] MEDS: DOCUSATE SODIUM 250 MG CAPSULE PO SCH ×2 (08:15→20:35)
[2020-03-26] MEDS: NICOTINE 7 MG/24 HOUR PATCH TD SCH (08:16)
[2020-03-26] MEDS: ENOXAPARIN SODIUM 60 MG/0.6 ML PF SYRINGE SQ SCH (08:16)
[2020-03-26 16:00] VITALS: BP 125/76
[2020-03-26 20:31] VITALS: BP 139/78
[2020-03-26] MEDS: SENNA 187 MG TABLET PO SCH (20:35)
[2020-03-26] MEDS: TAMSULOSIN HCL 0.4 MG CAPSULE PO SCH (20:35)
[2020-03-26] MEDS: TraZODone HCL 100 MG TABLET PO SCH (20:35)
[2020-03-26] MEDS: SIMVASTATIN 20 MG TABLET PO SCH (20:35)
[2020-03-26] MEDS: CARVEDILOL 6.25 MG TABLET PO SCH (20:36)
[2020-03-26] MEDS: INSULIN GLARGINE,HUM.REC.ANLOG 100 UNITS/ML SQ SCH (21:05)
[2020-03-27] VITALS: BP 114/83
[2020-03-27] MEDS: ACETAMINOPHEN 325 MG TABLET PO PRN ×4 (02:03→23:42)
[2020-03-27 06:12] LABS: GLUCOMETER DEV NAME(LOC) 2WR.2B; GLUCOSE,POINT OF CARE 92 MG/DL (70-110)
[2020-03-27 06:12] LABS: GLUCOMETER DEV NAME(LOC) 2WR.2B; GLUCOSE,POINT OF CARE 86 MG/DL (70-110)
[2020-03-27 06:13] LABS: GLUCOMETER DEV NAME(LOC) 2WR.2B; GLUCOSE,POINT OF CARE 115 MG/DL (70-110)
[2020-03-27 06:14] LABS: GLUCOMETER DEV NAME(LOC) 2WR.1C; GLUCOSE,POINT OF CARE 120 MG/DL (70-110)
[2020-03-27 06:25] LABS: GLUCOMETER DEV NAME(LOC) 2WR.2B; GLUCOSE,POINT OF CARE 123 MG/DL (70-110)
[2020-03-27 07:57] VITALS: BP 117/67
[2020-03-27] MEDS: DOCUSATE SODIUM 250 MG CAPSULE PO SCH ×2 (07:57→21:00)
[2020-03-27] MEDS: CARVEDILOL 6.25 MG TABLET PO SCH ×2 (07:57→21:00)
[2020-03-27] MEDS: MULTIVITAMINS WITH MINERALS, THERAPEUTIC TABLET PO SCH (07:57)
[2020-03-27] MEDS: GABAPENTIN 300 MG CAPSULE PO SCH ×3 (07:57→21:00)
[2020-03-27] MEDS: MetFORMIN HCL 500 MG TABLET PO SCH ×2 (07:57→17:19)
[2020-03-27] MEDS: AmLODIPine BESYLATE 10 MG TABLET PO SCH (07:57)
[2020-03-27] MEDS: NICOTINE 7 MG/24 HOUR PATCH TD SCH (07:58)
[2020-03-27 17:14] LABS: GLUCOMETER DEV NAME(LOC) 2WR.2B; GLUCOSE,POINT OF CARE 93 MG/DL (70-110)
[2020-03-27 17:16] LABS: GLUCOMETER DEV NAME(LOC) 2WR.1C; GLUCOSE,POINT OF CARE 94 MG/DL (70-110)
[2020-03-27 17:19] VITALS: BP 101/68
[2020-03-27 21:00] VITALS: BP 119/75
[2020-03-27] MEDS: SIMVASTATIN 20 MG TABLET PO SCH (21:00)
[2020-03-27] MEDS: TraZODone HCL 100 MG TABLET PO SCH (21:00)
[2020-03-27] MEDS: SENNA 187 MG TABLET PO SCH (21:00)
[2020-03-27] MEDS: TAMSULOSIN HCL 0.4 MG CAPSULE PO SCH (21:00)
[2020-03-27] MEDS: INSULIN GLARGINE,HUM.REC.ANLOG 100 UNITS/ML SQ SCH (21:04)
[2020-03-27 21:38] LABS: GLUCOMETER DEV NAME(LOC) 2WR.1C; GLUCOSE,POINT OF CARE 140 MG/DL (70-110)
[2020-03-28 00:42] VITALS: BP 122/80
[2020-03-28 06:12] LABS: GLUCOMETER DEV NAME(LOC) 2WR.1C; GLUCOSE,POINT OF CARE 133 MG/DL (70-110)
[2020-03-28 08:00] VITALS: BP 148/72
[2020-03-28 08:11] LABS: BASOPHILS % (AUTO) 0.4 % (0.0-2.0); EOSINOPHILS % (AUTO) 2.7 % (1.0-6.0); HEMATOCRIT 37.6 % (41-53); HEMOGLOBIN 12.7 g/dL (13.5-17.5); LYMPHOCYTES # (AUTO) 2.6 K/uL (1.0-4.8); LYMPHOCYTES % (AUTO) 30.6 % (22.0-44.0); MEAN CORPUSCULAR HEMOGLOBIN 30.8 pg (26.0-34.0); MEAN CORPUSCULAR HGB CONC 33.7 G/dL (31.0-37.0); MEAN CORPUSCULAR VOLUME 91 fL (80-100); MONOCYTES # (AUTO) 0.9 K/uL (0.1-1.0); MONOCYTES % (AUTO) 10.1 % (2.0-9.0); NEUTROPHILS # (AUTO) 4.8 K/uL (1.8-7.7); NEUTROPHILS % (AUTO) 56.2 % (40.0-70.0); PLATELET COUNT (AUTO) 377 K/uL (150-450); RED BLOOD CELL COUNT(AUTO) 4.12 MIL/uL (4.50-5.90); RED CELL DISTRIBUTION WIDTH 15.2 % (11.5-14.5)
[2020-03-28] MEDS: DOCUSATE SODIUM 250 MG CAPSULE PO SCH ×2 (08:20→20:07)
[2020-03-28] MEDS: MULTIVITAMINS WITH MINERALS, THERAPEUTIC TABLET PO SCH (08:20)
[2020-03-28] MEDS: MetFORMIN HCL 500 MG TABLET PO SCH ×2 (08:21→16:33)
[2020-03-28] MEDS: AmLODIPine BESYLATE 10 MG TABLET PO SCH (08:21)
[2020-03-28] MEDS: GABAPENTIN 300 MG CAPSULE PO SCH ×3 (08:21→20:06)
[2020-03-28] MEDS: CARVEDILOL 6.25 MG TABLET PO SCH (08:21)
[2020-03-28] MEDS: NICOTINE 7 MG/24 HOUR PATCH TD SCH (08:25)
[2020-03-28 08:36] LABS: ALANINE AMINOTRANSFERASE 30 U/L (12-78); ALBUMIN 2.9 g/dL (3.4-5.0); ALKALINE PHOSPHATASE 166 U/L (46-116); ANION GAP 7 mmol/L (8-16); ASPARTATE AMINOTRANSFERASE 18 U/L (15-37); BILIRUBIN,TOTAL 0.2 mg/dL (0.1-1.0); CALCIUM, TOTAL 8.9 mg/dL (8.8-10.5); CARBON DIOXIDE 24 mmol/L (22-29); CHLORIDE 105 mmol/L (98-107); CREATININE 0.62 mg/dL (0.60-1.30); GLOMERULAR FILTR. RATE CALC > 60 mL/min (>60); GLUCOSE,RANDOM 206 mg/dL (70-110); POTASSIUM 4.2 mmol/L (3.5-5.1); SODIUM SERUM 136 mmol/L (136-145); TOTAL PROTEIN, SERUM 6.9 g/dL (6.4-8.2); UREA NITROGEN, BLOOD 15 mg/dL (7-18)
[2020-03-28 12:07] LABS: GLUCOMETER DEV NAME(LOC) 2WR.2B; GLUCOSE,POINT OF CARE 69 MG/DL (70-110)
[2020-03-28 15:57] VITALS: BP 122/78
[2020-03-28] MEDS: ACETAMINOPHEN 325 MG TABLET PO PRN (15:59)
[2020-03-28 18:23] LABS: GLUCOMETER DEV NAME(LOC) 2WR.2B; GLUCOSE,POINT OF CARE 100 MG/DL (70-110)
[2020-03-28 19:58] VITALS: BP 129/83
[2020-03-28] MEDS: TAMSULOSIN HCL 0.4 MG CAPSULE PO SCH (20:06)
[2020-03-28] MEDS: SIMVASTATIN 20 MG TABLET PO SCH (20:06)
[2020-03-28] MEDS: METOPROLOL TARTRATE 25 MG TABLET PO SCH (20:06)
[2020-03-28] MEDS: TraZODone HCL 100 MG TABLET PO SCH (20:06)
[2020-03-28] MEDS: SENNA 187 MG TABLET PO SCH (20:07)
[2020-03-28] MEDS: INSULIN GLARGINE,HUM.REC.ANLOG 100 UNITS/ML SQ SCH (20:08)
[2020-03-28] MEDS: INSULIN LISPRO 100 UNITS/ML SQ PRN (20:08)
[2020-03-29] VITALS: BP 118/77
[2020-03-29] MEDS: ACETAMINOPHEN 325 MG TABLET PO PRN ×2 (03:42→15:08)
[2020-03-29 05:48] LABS: GLUCOMETER DEV NAME(LOC) 2WR.2B; GLUCOSE,POINT OF CARE 113 MG/DL (70-110)
[2020-03-29 07:55] VITALS: BP 133/88
[2020-03-29] MEDS: AmLODIPine BESYLATE 10 MG TABLET PO SCH (08:15)
[2020-03-29] MEDS: DOCUSATE SODIUM 250 MG CAPSULE PO SCH ×2 (08:15→20:12)
[2020-03-29] MEDS: METOPROLOL TARTRATE 25 MG TABLET PO SCH ×2 (08:15→20:12)
[2020-03-29] MEDS: MetFORMIN HCL 500 MG TABLET PO SCH ×2 (08:15→17:12)
[2020-03-29] MEDS: GABAPENTIN 300 MG CAPSULE PO SCH ×3 (08:15→20:12)
[2020-03-29] MEDS: NICOTINE 7 MG/24 HOUR PATCH TD SCH (08:16)
[2020-03-29] MEDS: MULTIVITAMINS WITH MINERALS, THERAPEUTIC TABLET PO SCH (08:16)
[2020-03-29 11:51] LABS: GLUCOMETER DEV NAME(LOC) 2WR.1C; GLUCOSE,POINT OF CARE 185 MG/DL (70-110)
[2020-03-29] MEDS: INSULIN LISPRO 100 UNITS/ML SQ PRN (12:19)
[2020-03-29 12:46] LABS: GLUCOMETER DEV NAME(LOC) 2WR.2B; GLUCOSE,POINT OF CARE 113 MG/DL (70-110)
[2020-03-29 16:05] VITALS: BP 121/70
[2020-03-29 17:32] LABS: GLUCOMETER DEV NAME(LOC) 2WR.2B; GLUCOSE,POINT OF CARE 96 MG/DL (70-110)
[2020-03-29] MEDS: SIMVASTATIN 20 MG TABLET PO SCH (20:11)
[2020-03-29] MEDS: TAMSULOSIN HCL 0.4 MG CAPSULE PO SCH (20:12)
[2020-03-29] MEDS: TraZODone HCL 100 MG TABLET PO SCH (20:12)
[2020-03-29] MEDS: SENNA 187 MG TABLET PO SCH (20:12)
[2020-03-29] MEDS: INSULIN GLARGINE,HUM.REC.ANLOG 100 UNITS/ML SQ SCH (20:28)
[2020-03-30 00:03] VITALS: BP 138/81
[2020-03-30 05:25] LABS: GLUCOMETER DEV NAME(LOC) 2WR.1C; GLUCOSE,POINT OF CARE 100 MG/DL (70-110)
[2020-03-30] MEDS: GABAPENTIN 300 MG CAPSULE PO SCH ×3 (07:57→20:59)
[2020-03-30] MEDS: MULTIVITAMINS WITH MINERALS, THERAPEUTIC TABLET PO SCH (07:58)
[2020-03-30] MEDS: DOCUSATE SODIUM 250 MG CAPSULE PO SCH ×2 (07:58→20:59)
[2020-03-30] MEDS: MetFORMIN HCL 500 MG TABLET PO SCH ×2 (07:58→17:29)
[2020-03-30] MEDS: METOPROLOL TARTRATE 25 MG TABLET PO SCH ×2 (07:58→21:00)
[2020-03-30] MEDS: AmLODIPine BESYLATE 10 MG TABLET PO SCH (07:58)
[2020-03-30] MEDS: NICOTINE 7 MG/24 HOUR PATCH TD SCH (07:58)
[2020-03-30 08:01] VITALS: BP 128/88
[2020-03-30] MEDS: INSULIN LISPRO 100 UNITS/ML SQ PRN (09:02)
[2020-03-30] MEDS: ACETAMINOPHEN 325 MG TABLET PO PRN (13:15)
[2020-03-30 16:10] VITALS: BP 127/84
[2020-03-30 17:47] LABS: GLUCOMETER DEV NAME(LOC) 2WR.1C; GLUCOSE,POINT OF CARE 75 MG/DL (70-110)
[2020-03-30 17:47] LABS: GLUCOMETER DEV NAME(LOC) 2WR.1C; GLUCOSE,POINT OF CARE 170 MG/DL (70-110)
[2020-03-30 20:36] LABS: GLUCOMETER DEV NAME(LOC) 2WR.2B; GLUCOSE,POINT OF CARE 108 MG/DL (70-110)
[2020-03-30] MEDS: SIMVASTATIN 20 MG TABLET PO SCH (20:59)
[2020-03-30] MEDS: SENNA 187 MG TABLET PO SCH (20:59)
[2020-03-30] MEDS: TAMSULOSIN HCL 0.4 MG CAPSULE PO SCH (20:59)
[2020-03-30] MEDS: TraZODone HCL 100 MG TABLET PO SCH (21:00)
[2020-03-30] MEDS: INSULIN GLARGINE,HUM.REC.ANLOG 100 UNITS/ML SQ SCH (21:02)
[2020-03-31 00:23] VITALS: BP 100/62
[2020-03-31] MEDS ORDERED: AMLO10TA55 PO (00:47)
[2020-03-31] MEDS ORDERED: DOCU-350 PO (00:48)
[2020-03-31] MEDS ORDERED: GABA-1181 PO (00:49)
[2020-03-31] MEDS ORDERED: MULT-1239 PO (00:50)
[2020-03-31] MEDS ORDERED: METF-960 PO ×2 (00:51→11:33)
[2020-03-31] MEDS ORDERED: NICO-800 TD (00:52)
[2020-03-31] MEDS ORDERED: SIMV-260 PO (00:53)
[2020-03-31] MEDS ORDERED: TAMS-13 PO (00:54)
[2020-03-31] MEDS ORDERED: TRAZ-257 PO (00:55)
[2020-03-31] MEDS ORDERED: INSLAN SQ (00:55)
[2020-03-31] MEDS ORDERED: INSU100V SQ (01:02)
[2020-03-31] MEDS ORDERED: METO25 PO (01:04)
[2020-03-31 04:16] LABS: GLUCOMETER DEV NAME(LOC) 2WR.2B; GLUCOSE,POINT OF CARE 111 MG/DL (70-110)
[2020-03-31] MEDS: ACETAMINOPHEN 325 MG TABLET PO PRN ×2 (05:46→09:39)
[2020-03-31 06:06] LABS: GLUCOMETER DEV NAME(LOC) 2WR.1C; GLUCOSE,POINT OF CARE 97 MG/DL (70-110)
[2020-03-31] MEDS: MetFORMIN HCL 500 MG TABLET PO SCH (09:38)
[2020-03-31] MEDS: MULTIVITAMINS WITH MINERALS, THERAPEUTIC TABLET PO SCH (09:38)
[2020-03-31] MEDS: AmLODIPine BESYLATE 10 MG TABLET PO SCH (09:38)
[2020-03-31] MEDS: DOCUSATE SODIUM 250 MG CAPSULE PO SCH (09:38)
[2020-03-31] MEDS: GABAPENTIN 300 MG CAPSULE PO SCH (09:38)
[2020-03-31] MEDS: METOPROLOL TARTRATE 25 MG TABLET PO SCH (09:38)
[2020-03-31 09:39] VITALS: BP 129/85
[2020-03-31] MEDS: NICOTINE 7 MG/24 HOUR PATCH TD SCH (09:39)
== END 2020-03-31 15:39 | disposition home health service (06) | DRG 86 ==
LOC: 2WR 15:53
PROVIDERS: ADMIT Physical Medicine & Rehabilitation; ATTEND Physical Medicine & Rehabilitation
DX: S06.6X0A Traumatic subarachnoid hemorrhage without loss of consciousness, initial encounter (principal); S12.500A Unspecified displaced fracture of sixth cervical vertebra, initial encounter for closed fracture; S22.41XA Multiple fractures of ribs, right side, initial encounter for closed fracture; S22.42XA Multiple fractures of ribs, left side, initial encounter for closed fracture; S22.070A Wedge compression fracture of T9-T10 vertebra, initial encounter for closed fracture; Z98.890 Other specified postprocedural states; V89.2XXA Person injured in unspecified motor-vehicle accident, traffic, initial encounter
CPT/HCPCS: 72040; 84443; 84460; 86706; 87081; 87340; 92507; 92522; 92523; 92526; 93005; 93970; 97110; 97112; 97116; 97150; 97163; 97167; 97530; 97535; 99366; G0238; J1650; J1815; J2543; J7030; 36415-L1; 36415-TC; 71046; 71046-TC